=== PATIENT | female | born 1955 | race Caucasian/White ===

== ENCOUNTER 2024-09-29 18:21 | Inpatient (IN) | payer OTHER ==
[2024-09-29 18:44] VITALS: BMI 28.3
[2024-09-29] MEDS ORDERED: HEPARIN NA (PORCINE) 5,000 UNITS/ML 1ML VIAL IVPUSH PRN ×2 (20:15)
[2024-09-29 20:42] LABS: ABSOLUTE IMMATURE GRANULOCYTES 0.01 x10^3/uL (0.0-0.031); BASOPHILS # 0.02 x10^3/uL (0.01-0.08); EOSINOPHIL % 1.9 % (0.7-5.8); EOSINOPHILS # 0.13 x10^3/uL (0.04-0.36); HEMATOCRIT 40.5 % (34.1-44.9); MCHC 32.1 g/dl (32.2-35.5); MEAN CELL VOLUME 90.6 fl (79.4-94.8); MEAN PLT VOLUME 9.4 fl (9.4-12.3); MONOCYTE # 0.42 x10^3/uL (0.24-0.86); MONOCYTE % 6.3 % (4.7-12.5); PLATELET COUNT 188 x10^3/uL (182-369); RDW 12.7 % (12.4-16.4)
[2024-09-29 20:50] LABS: INR 1.24 (0.83-1.09); PROTHROMBIN TIME (PATIENT) 13.6 SEC (9.7-13.0)
[2024-09-29 20:52] LABS: ACTIVATED PTT 31.3 SECONDS (25.2-36.5)
[2024-09-29 21:01] LABS: POTASSIUM 3.8 mmol/L (3.5-5.1)
[2024-09-29 21:03] LABS: BLOOD UREA NITROGEN 16.2 mg/dL (7-18)
[2024-09-29 21:06] LABS: CREATININE 0.7 mg/dL (0.55-1.3)
[2024-09-29 21:08] LABS: BILIRUBIN,TOTAL 0.4 mg/dL (0.2-1); TOT PROT 7.6 g/dl (6.4-8.2)
[2024-09-29] MEDS: HEPARIN NA (PORCINE) 5,000 UNITS/ML 1ML VIAL IVPUSH ONE (21:15)
[2024-09-29] MEDS: ACETAMINOPHEN 1000 MG/100 ML BAG IVPB ONE (21:15)
[2024-09-29] MEDS: HEPARIN INFUSION - 25,000 UNITS/500 ML INFUS.BAG IVPB SCH (21:15)
[2024-09-29] MEDS ORDERED: HEPARIN NA (PORCINE) 5,000 UNITS/ML 1ML VIAL ONE (21:16)
[2024-09-29] MEDS ORDERED: HEPARIN INFUSION - 25,000 UNITS/500 ML INFUS.BAG IVPB ONE (21:17)
[2024-09-29 21:58] LABS: HCV DIAGNOSTIC IN-HOUSE W/RFLX NON-REACTIVE (NONREACTIVE)
[2024-09-29 21:59] LABS: HIV INTERPRETATION NEGATIVE (NEGATIVE)
[2024-09-29] MEDS ORDERED: ACETAMINOPHEN 1000 MG/100 ML BAG IVPB PRN (22:18)
[2024-09-30] MEDS: ACETAMINOPHEN 500 MG TABLET (FP) PO PRN (01:21)
[2024-09-30] MEDS: INSULIN ASPART SLIDING SCALE (NOVOLOG) 1 VIAL SQ SCH ×2 (06:00→22:43)
[2024-09-30 09:09] LABS: HEMATOCRIT 37.1 % (34.1-44.9); HEMOGLOBIN 11.9 g/dL (11.2-15.7); MCHC 32.1 g/dl (32.2-35.5); MEAN CELL VOLUME 90.3 fl (79.4-94.8); MEAN PLT VOLUME 9.8 fl (9.4-12.3); PLATELET COUNT 187 x10^3/uL (182-369); RDW 12.8 % (12.4-16.4)
[2024-09-30 09:31] LABS: POTASSIUM 3.4 mmol/L (3.5-5.1)
[2024-09-30 09:36] LABS: ALBUMIN 3.4 g/dl (3.4-5.0); BLOOD UREA NITROGEN 13.9 mg/dL (7-18)
[2024-09-30 09:37] LABS: CALCIUM 9.1 mg/dL (8.5-10.1)
[2024-09-30 09:38] LABS: CREATININE 0.6 mg/dL (0.55-1.3)
[2024-09-30 09:39] LABS: BILIRUBIN,TOTAL 0.5 mg/dL (0.2-1); TOT PROT 6.5 g/dl (6.4-8.2)
[2024-09-30] MEDS ORDERED: LIDOCAINE HCL 1%, 10 MG/ML (20ML VIAL) ONE (19:12)
[2024-09-30] MEDS ORDERED: HEPARIN NA (PORCINE) 5,000 UNITS/ML 1ML VIAL ONE (19:12)
[2024-09-30] MEDS ORDERED: LIDOCAINE HCL/PF 2% SDV 5ML VIAL ONE (19:17)
[2024-09-30] MEDS ORDERED: PROPOFOL 40 ML ONE (19:18)
[2024-09-30] MEDS ORDERED: MIDAZOLAM HCL 2 MG/2 ML SINGLE DOSE VIAL ONE (19:18)
[2024-09-30] MEDS ORDERED: ROCURONIUM BROMIDE 50 MG/5 ML SYRINGE ONE (19:20)
[2024-09-30] MEDS: ceFAZolin SODIUM 1 GM VIAL IVPB ONE (19:40)
[2024-09-30] MEDS: LIDOCAINE HCL 1%, 10 MG/ML (20ML VIAL) NR ONE (19:55)
[2024-09-30] MEDS ORDERED: ceFAZolin SODIUM 1 GM VIAL ONE (20:00)
[2024-09-30] MEDS ORDERED: ONDANSETRON 4 MG/2 ML VIAL ONE (20:00)
[2024-09-30] MEDS ORDERED: DEXAMETHASONE SOD PHOSPHATE 4 MG/1 ML VIAL ONE (20:00)
[2024-09-30] MEDS: HEPARIN NA (PORCINE) 5,000 UNITS/ML 1ML VIAL SQ ONE (20:02)
[2024-09-30] MEDS ORDERED: ONDANSETRON 4 MG/2 ML VIAL IVPUSH PRN (20:55)
[2024-09-30] MEDS ORDERED: ACETAMINOPHEN 500 MG TABLET (FP) PO PRN (21:09)
[2024-09-30] MEDS: ENOXAPARIN NA (PORCINE) 80 MG/0.8 ML DISP.SYRIN SQ SCH (21:10)
[2024-09-30] MEDS: LACTATED RINGERS SOLUTION 1,000 ML IV SCH (21:40)
[2024-10-01 06:47] VITALS: TEMP 97.9
[2024-10-01 09:27] LABS: HEMOGLOBIN 11.3 g/dL (11.2-15.7); MCHC 32.3 g/dl (32.2-35.5); MEAN CELL VOLUME 91.9 fl (79.4-94.8); MEAN PLT VOLUME 10.2 fl (9.4-12.3); PLATELET COUNT 190 x10^3/uL (182-369); RDW 12.8 % (12.4-16.4)
[2024-10-01 09:39] VITALS: BP 143/61; PULSE 74; RESP 17
[2024-10-01 09:54] LABS: POTASSIUM 4.1 mmol/L (3.5-5.1)
[2024-10-01 10:10] LABS: ALBUMIN 3.1 g/dl (3.4-5.0); BLOOD UREA NITROGEN 17.4 mg/dL (7-18); CALCIUM 8.6 mg/dL (8.5-10.1); MAGNESIUM 1.7 mg/dL (1.8-2.4)
[2024-10-01 10:13] LABS: CREATININE 0.5 mg/dL (0.55-1.3)
[2024-10-01 10:14] LABS: PHOSPHOROUS 3.9 mg/dL (2.5-4.9)
[2024-10-01 10:15] LABS: BILIRUBIN,TOTAL 0.5 mg/dL (0.2-1); TOT PROT 5.9 g/dl (6.4-8.2)
[2024-10-01] MEDS: MAGNESIUM SULF 50% (8.12 MEQ/2 ML-1 GM VIAL) IVPB ONE (11:14)
== END 2024-10-01 16:31 | disposition home or self-care (01) | DRG 272 ==
LOC: JER 18:21 → JERBED 19:57 → J5S 22:40
PROVIDERS: ADMIT Student in an Organized Health Care Education/Training Program
PROC: 06CF3ZZ Extirpation of Matter from Right External Iliac Vein, Percutaneous Approach (ICD-10-PCS; 2024-09-30)
PROC: B50BYZZ Plain Radiography of Right Lower Extremity Veins using Other Contrast (ICD-10-PCS; 2024-09-30)
PROC: 06CM3ZZ Extirpation of Matter from Right Femoral Vein, Percutaneous Approach (ICD-10-PCS; principal; 2024-09-30 17:30)
DX: I82.401 Acute embolism and thrombosis of unspecified deep veins of right lower extremity (principal); E11.9 Type 2 diabetes mellitus without complications; I10 Essential (primary) hypertension; E78.5 Hyperlipidemia, unspecified
CPT/HCPCS: 36415; 76000-TC-FY; 80053; 82962; 83735; 84100; 85025; 85027; 85610; 85730; 86803; 86850; 86900; 86901; 87389; 88304-TC; 93005; 93010; 94760; 99285-25; C1757; C1894; J1644